=== PATIENT | male | born 1990 | race American Indian/Alaskan Native ===

== ENCOUNTER 2016-03-10 09:28 | Emergency (ER) | payer OTHER ==
[2016-03-10 09:41] VITALS: BP 121/84
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
== END 2016-03-10 11:32 | disposition home or self-care (01) ==
LOC: ED 09:28
DX: Z04.3 Encounter for examination and observation following other accident (principal); V49.49XA Driver injured in collision with other motor vehicles in traffic accident, initial encounter; Y93.9 Activity, unspecified; Y92.9 Unspecified place or not applicable; Y99.9 Unspecified external cause status
CPT/HCPCS: 72040; 99283